=== PATIENT | female | born 1980 ===

== ENCOUNTER 2017-12-20 12:45 | Inpatient (IN) | payer OTHER ==
[~2017-12-20] VITALS: Ht 160 cm; Wt 67.6 kg
[2018-01-11] MEDS ORDERED: COLACE100 MG PO (08:19)
[2018-01-11] MEDS ORDERED: PRENATAL TABLE1 EAC2 PO (08:20)
== END 2018-01-13 10:09 | disposition home or self-care (01) | DRG 767 ==
LOC: SURG-SUITE 01-11 06:42 → LDR 01-11 06:42 → SURG-SUITE 01-11 13:47
PROVIDERS: Obstetrics & Gynecology
PROC: 0UL70ZZ Occlusion of Bilateral Fallopian Tubes, Open Approach (ICD-10-PCS; 2018-01-11)
PROC: 0KQM0ZZ Repair Perineum Muscle, Open Approach (ICD-10-PCS; 2018-01-11)
PROC: 10907ZC Drainage of Amniotic Fluid, Therapeutic from Products of Conception, Via Natural or Artificial Opening (ICD-10-PCS; 2018-01-11)
PROC: 4A1HXCZ Monitoring of Products of Conception, Cardiac Rate, External Approach (ICD-10-PCS; 2018-01-11)
PROC: 10E0XZZ Delivery of Products of Conception, External Approach (ICD-10-PCS; principal; 2018-01-11 16:45)
DX: O70.1 Second degree perineal laceration during delivery (principal); Z37.0 Single live birth; O69.1XX0 Labor and delivery complicated by cord around neck, with compression, not applicable or unspecified; Z3A.40 40 weeks gestation of pregnancy; Z30.2 Encounter for sterilization; O09.523 Supervision of elderly multigravida, third trimester

== ENCOUNTER 2018-01-06 10:00 | Outpatient (CLI) | payer OTHER | END 2018-01-06 10:53 | disposition home or self-care (01) | LOC: NST 10:00 | DX: Z34.83 Encounter for supervision of other normal pregnancy, third trimester (principal) ==

== ENCOUNTER 2018-01-09 09:15 | Outpatient (CLI) | payer OTHER | END 2018-01-09 10:02 | disposition home or self-care (01) | LOC: NST 09:15 | DX: Z34.83 Encounter for supervision of other normal pregnancy, third trimester (principal) ==